=== PATIENT | male | born 1980 | race Caucasian/White ===

== ENCOUNTER → 2019-09-25 | Emergency (ER) | payer MEDICAID ==
--- NOTE | 2019-09-25 22:48 | NUR ---
CALLED FOR TRIAGE, NO RESPONSE
--- NOTE | 2019-09-25 23:09 | NUR ---
CALLED FOR TRIAGE, NO RESPONSE
--- NOTE | 2019-09-25 23:48 | NUR ---
CALLED FOR TRIAGE, NO RESPONSE
--- NOTE | 2019-09-26 00:01 | NUR ---
CALLED FOR TRIAGE, NO RESPONSE
== END | disposition left against medical advice (07) ==
LOC: ER 21:56
DX: Z53.21 Procedure and treatment not carried out due to patient leaving prior to being seen by health care provider (principal)

== ENCOUNTER 2019-09-26 23:57 | Emergency (ER) | payer MEDICAID ==
[~2019-09-26] VITALS: Ht 167.6 cm; Wt 83.9 kg
--- NOTE | 2019-09-27 00:01 | NUR ---
PT AAOX4. AMBULATORY WITH STADY GAIT. C/O SI WITH PLAN TO CUT WRIST. DENIES ETOH OR DRUG USE. DENIES HI. NOTED OLD CUTS ON L WRIST. PLACED IN GOWN, BELONINGS IN LOCKER. SITTER AT BEDSIDE. PALCED ON MONITOR AND PULSE OX. NO ACUTE DISTRESS NTOED.
[2019-09-27] MEDS ORDERED: OLANZAPINE 5 MG TABLET PO ONE (00:30)
[2019-09-27 00:43] LABS: BASOPHILS # (AUTO) 0.1 /CMM (0.0-0.2); BASOPHILS % (AUTO) 1.1 % (0.0-2.0); EOSINOPHILS % (AUTO) 0.1 % (0.0-6.0); HEMATOCRIT 46 % (39-51); HEMOGLOBIN 15.6 g/dL (13.5-17.5); LYMPHOCYTES # (AUTO) 2.1 /CMM (0.8-4.8); LYMPHOCYTES % (AUTO) 24.8 % (20.0-44.0); MEAN CORPUSCULAR HGB CONC 34 g/dl (31.0-36.0); MEAN CORPUSCULAR VOLUME 88 fL (80-96); MONOCYTES # (AUTO) 0.5 /CMM (0.1-1.30); MONOCYTES % (AUTO) 5.9 % (2.0-12.0); NEUTROPHILS # (AUTO) 5.8 /CMM (1.8-8.9); NEUTROPHILS % (AUTO) 68.1 % (43.0-81.0); PLATELET COUNT (AUTO) 287 /CMM (150-450); WHITE BLOOD COUNT (AUTO) 8.5 K/uL (4.3-11.0)
[2019-09-27 00:55] LABS: CALCIUM, SERUM 9.5 mg/dL (8.5-10.1); CARBON DIOXIDE 24 mmol/L (21-32); CHLORIDE 104 mmol/L (98-107); CREATININE 0.9 mg/dL (0.6-1.3); GLUCOSE 114 mg/dL (74-106); POTASSIUM 3.5 mmol/L (3.5-5.1); SODIUM SERUM 139 mmol/L (136-145); UREA NITROGEN, BLOOD 13 mg/dL (7-18)
[2019-09-27 01:01] LABS: BILIRUBIN,DIRECT 0.1 mg/dL (0.0-0.2); BILIRUBIN,TOTAL 0.3 mg/dL (0.2-1.0)
[2019-09-27 01:02] LABS: ACETAMINOPHEN 0 ug/ml (10-30); ALANINE AMINOTRANSFERASE 57 U/L (12-78); ALBUMIN 4.2 g/dL (3.4-5.0); ALCOHOL, BLOOD < 3 mg/dL (0-0); ALKALINE PHOSPHATASE 123 U/L (46-116); ASPARTATE AMINOTRANSFERASE 37 U/L (15-37); SALICYLATE 1.9 mg/dL (2.8-20.0); TOTAL PROTEIN, SERUM 8.6 g/dL (6.4-8.2)
--- NOTE | 2019-09-27 02:09 | NUR ---
URINE COLLECTED AND SENT TO LAB
[2019-09-27 02:42] LABS: APPEARANCE,URINE CLEAR (CLEAR); BILIRUBIN,URINE NEGATIVE (NEGATIVE); BLOOD, URINE NEGATIVE Ery/uL (NEGATIVE); COLOR,URINE YELLOW (YELLOW); KETONES,URINE NEGATIVE (NEGATIVE); LEUKOCYTE ESTERASE ,URINE NEGATIVE (NEGATIVE); NITRITE, URINE NEGATIVE (NEGATIVE); PROTEIN,URINE NEGATIVE (NEGATIVE); UGLUCOSE NEGATIVE (NEGATIVE); UROBILINOGEN,URINE 0.2 EU/dL (0.2)
--- NOTE | 2019-09-27 03:06 | NUR ---
CLINICAL INFORMATION FAXED TO [facility]
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
[2019-09-27] MEDS ORDERED: LIDOCAINE VISCOUS 2% UD 15 ML UDC ONE (03:38)
[2019-09-27] MEDS ORDERED: MAG HYDROX/AL HYDROX/SIMETH 30 ML UDC ONE (03:38)
[2019-09-27] MEDS ORDERED: LIDOCAINE VISCOUS 2% UD 15 ML UDC MM ONE (04:00)
[2019-09-27] MEDS ORDERED: MAG HYDROX/AL HYDROX/SIMETH 30 ML UDC PO ONE (04:30)
--- NOTE | 2019-09-27 05:20 | NUR ---
PER [facility], NO BEDS AVAILABLE AT THIS TIME. ER MD AWARE
--- NOTE | 2019-09-27 08:12 | NUR ---
JOCELYNN contacted Prasanna at [facility] to f/u regarding admittance to [facility]. Per Prasanna, they are awaiting change of shift. Pt. will be accepted at [facility] [place] per Prasanna.
--- NOTE | 2019-09-27 11:07 | NUR ---
FOLLOWED UP WITH AMRITA W[place] AND EVERYTHING WAS FAXED OVER TO [facility]. NO BED ASSIGNMENT BUT WILL CALL BACK AFTER MEETING WITH INFORMATION.
--- NOTE | 2019-09-27 12:06 | NUR ---
JANUARY FROM [facility] CALLED. PT IS ACCEPTED AT [facility]. NUMBER FOR REPORT IS [phone] [address]T [phone] PICKENS IS PSYCH DOCTOR DR. COOPER ACCEPTING.
--- NOTE | 2019-09-27 12:12 | NUR ---
REPORT GIVEN TO CHANTALE KOWALSKI OF [facility] FOR [facility].
--- NOTE | 2019-09-27 12:15 | NUR ---
CALLED [facility] FOR TRANSPORT TO [facility]. ETA 1300.
[2019-09-27 12:17] VITALS: BP 122/73
--- NOTE | 2019-09-27 13:12 | NUR ---
REPORT GIVEN TO EMT FOR PT TRANSFER TO [facility].
== END 2019-09-27 13:13 ==
LOC: ER 09-27
DX: R45.851 Suicidal ideations (principal); R45.1 Restlessness and agitation; F20.9 Schizophrenia, unspecified; F10.10 Alcohol abuse, uncomplicated; F17.200 Nicotine dependence, unspecified, uncomplicated; Y90.0 Blood alcohol level of less than 20 mg/100 ml
CPT/HCPCS: 36415; 80048; 80076; 80305; 80307; 80329; 81001; 85025; 99285; G0480; 81000-TC

== ENCOUNTER 2020-04-29 04:19 | Emergency (ER) | payer MEDICAID ==
[~2020-04-29] VITALS: Ht 165.1 cm; Wt 81.6 kg
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
--- NOTE | 2020-04-29 04:41 | NUR ---
AWAITING FOR PT TO PROVIDE URINE SAMPLE
--- NOTE | 2020-04-29 04:42 | NUR ---
CALLED POISON CONTROL SPOKE TO DIANNE ADVICED TO WATCH PT FOR 4HRS , CHECK RENAL FUNCTION, CK LEVEL, LACTATE, ASPIRIN AND TYLENOL, OBTAIN EKG TO CHECK FOR PROLONGED QT INTERVAL.
--- NOTE | 2020-04-29 04:49 | NUR ---
ASKED PATIENT TO PROVIDE URINE SAMPLE. PT STATED HE WOULD LIKE WARM WATER. PT PROVIDED WITH WATER.
--- NOTE | 2020-04-29 04:55 | NUR ---
NURSE SCHOOL AT BEDSIDE FOR BLOOD DRAW
[2020-04-29 05:04] LABS: BASOPHILS # (AUTO) 0.1 /CMM (0.0-0.2); BASOPHILS % (AUTO) 0.4 % (0.0-2.0); HEMATOCRIT 45 % (39-51); HEMOGLOBIN 14.9 g/dL (13.5-17.5); LYMPHOCYTES % (AUTO) 7.8 % (20.0-44.0); MEAN CORPUSCULAR HGB CONC 33 g/dl (31.0-36.0); MEAN CORPUSCULAR VOLUME 92 fL (80-96); MONOCYTES # (AUTO) 0.7 /CMM (0.1-1.30); MONOCYTES % (AUTO) 5.6 % (2.0-12.0); NEUTROPHILS # (AUTO) 10.6 /CMM (1.8-8.9); NEUTROPHILS % (AUTO) 86.2 % (43.0-81.0); PLATELET COUNT (AUTO) 262 /CMM (150-450); RED BLOOD CELL COUNT(AUTO) 4.94 MIL/uL (4.5-6.0); WHITE BLOOD COUNT (AUTO) 12.3 K/uL (4.3-11.0)
[2020-04-29] MEDS ORDERED: LIDOCAINE 2% JEL UROJET 10 ML MM ONE ×2 (05:13→06:00)
[2020-04-29 05:17] LABS: CALCIUM, SERUM 9.1 mg/dL (8.5-10.1); CARBON DIOXIDE 30 mmol/L (21-32); CHLORIDE 105 mmol/L (98-107); CREATININE 1.3 mg/dL (0.6-1.3); GLUCOSE 79 mg/dL (74-106); POTASSIUM 3.5 mmol/L (3.5-5.1); SODIUM SERUM 143 mmol/L (136-145); UREA NITROGEN, BLOOD 15 mg/dL (7-18)
[2020-04-29 05:23] LABS: ALANINE AMINOTRANSFERASE 27 U/L (12-78); ALKALINE PHOSPHATASE 117 U/L (46-116); ASPARTATE AMINOTRANSFERASE 21 U/L (15-37); BILIRUBIN,DIRECT 0.2 mg/dL (0.0-0.2); BILIRUBIN,TOTAL 0.5 mg/dL (0.2-1.0); TOTAL PROTEIN, SERUM 7.8 g/dL (6.4-8.2)
[2020-04-29 05:25] LABS: SALICYLATE 1.2 mg/dL (2.8-20.0)
[2020-04-29 05:26] LABS: ACETAMINOPHEN < 2 ug/ml (10-30); ALCOHOL, BLOOD < 3 mg/dL (0-0)
--- NOTE | 2020-04-29 05:33 | NUR ---
URINE COLLECTED AND SENT TO LAB
[2020-04-29 05:57] LABS: APPEARANCE,URINE SL CLOUDY (CLEAR); BILIRUBIN,URINE NEGATIVE (NEGATIVE); BLOOD, URINE NEGATIVE Ery/uL (NEGATIVE); COLOR,URINE YELLOW (YELLOW); KETONES,URINE NEGATIVE (NEGATIVE); LEUKOCYTE ESTERASE ,URINE NEGATIVE (NEGATIVE); NITRITE, URINE NEGATIVE (NEGATIVE); PROTEIN,URINE 30 mg/dl (NEGATIVE); UGLUCOSE NEGATIVE (NEGATIVE)
[2020-04-29] MEDS ORDERED: OLANZAPINE 10 MG VIAL IM ONE ×2 (06:00→06:03)
[2020-04-29 06:22] LABS: BACTERIA,URINE None seen /HPF (None Seen); SQUAMOUS EPITHELIAL CELL,UR Few /HPF (None Seen); URINE AMORPHOUS URATE Moderate /HPF (None Seen); WBC,URINE 0-2 /HPF (0-3)
--- NOTE | 2020-04-29 07:13 | NUR ---
ASSESSED PT ON BED ASLEEP EASILY AROUSABLE, NOT IN RESPIRATORY DISTRESS, V/S STABLE, KEPT RESTED AND COMFORTABLE. WILL CONTINUE TO MONITOR.
--- NOTE | 2020-04-29 10:56 | NUR ---
This SW faxed over patient information to [facility]
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
--- NOTE | 2020-04-29 14:40 | NUR ---
PT PROVIDED WITH A MEAL
[2020-04-29 15:49] VITALS: BP 137/85
--- NOTE | 2020-04-29 15:59 | NUR ---
PT IS ACCEPTED IN [facility] [phone] PICKENS PLEASE SEND JUST AFTER 7PM
--- NOTE | 2020-04-29 16:08 | NUR ---
This SW attempted to speak with Officer Ankit patient Pile Driver Operator. This SW was unable to speak with him, however, this SW left a voicemail informing Officer Ankit that the patient is leaving [facility] to enter Voluntary Psychiatric Treatment at [facility] in [place].
--- NOTE | 2020-04-29 16:12 | NUR ---
This SW spoke with patients mother Carrie to inform her that the patient has been accepted to [facility].
--- NOTE | 2020-04-29 18:40 | NUR ---
CALLED TRANSPORT ETA 2000
--- NOTE | 2020-04-29 20:17 | NUR ---
REPORT GIVEN TO CHANTALE HADLEY FOR [facility]
--- NOTE | 2020-04-29 20:24 | NUR ---
CALL BACK FROM [facility]. PER LINNETTE LOPEZ TO SEND PATIENT TO [facility].
--- NOTE | 2020-04-29 20:26 | NUR ---
REPORT GIVEN TO CRESENCIO. PT NANCY FOR TRANSFER
--- NOTE | 2020-04-30 11:26 | NUR ---
This SW was contacted by patients mother Carrie . Patient's mother asked this SW to inform [facility] about patient not wanting to enter a drug treatment facility in [place] as patient's son lives in the area. Patient wants to see his son but it would be a parole violation. This SW informed patient's mother Carrie that the patient should provide this information to oil field caser at [facility] before referring patient to a drug treatment facility.
== END 2020-04-29 20:27 ==
LOC: ER 04:21
DX: T14.91XA Suicide attempt, initial encounter (principal); T43.692A Poisoning by other psychostimulants, intentional self-harm, initial encounter; R94.31 Abnormal electrocardiogram [ECG] [EKG]; F20.9 Schizophrenia, unspecified; F31.9 Bipolar disorder, unspecified; F17.200 Nicotine dependence, unspecified, uncomplicated; Z59.0 Homelessness; Y93.89 Activity, other specified; Y92.89 Other specified places as the place of occurrence of the external cause; Y99.8 Other external cause status
CPT/HCPCS: 36415; 80048; 80076; 80305; 80307; 80329; 81001; 82550; 85025; 93005; 96372; 99285; G0480; J3490 ×2; 81000-TC

== ENCOUNTER 2020-08-08 03:16 | Emergency (ER) | payer MEDICAID ==
[~2020-08-08] VITALS: Ht 167.6 cm; Wt 72.6 kg
[2020-08-08 03:30] VITALS: BP 135/56
[2020-08-08] MEDS ORDERED: LORAZEPAM INJ 2 MG/ML VIAL ONE (03:47)
[2020-08-08] MEDS ORDERED: LORAZEPAM INJ 2 MG/ML VIAL IM ONE (04:00)
== END 2020-08-08 04:36 | disposition home or self-care (01) ==
LOC: ER 03:38
DX: F15.10 Other stimulant abuse, uncomplicated (principal); F41.9 Anxiety disorder, unspecified; R00.2 Palpitations; R00.0 Tachycardia, unspecified; Z59.0 Homelessness
CPT/HCPCS: 96372; 99283; J2060

== ENCOUNTER 2020-11-19 02:10 | Emergency (ER) | payer MEDICAID ==
[~2020-11-19] VITALS: Ht 167.6 cm; Wt 80.7 kg
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
[2020-11-19 02:55] LABS: BASOPHILS # (AUTO) 0.1 /CMM (0.0-0.2); BASOPHILS % (AUTO) 0.7 % (0.0-2.0); EOSINOPHILS % (AUTO) 0.1 % (0.0-6.0); HEMATOCRIT 39 % (39-51); HEMOGLOBIN 12.9 g/dL (13.5-17.5); LYMPHOCYTES # (AUTO) 2.3 /CMM (0.8-4.8); LYMPHOCYTES % (AUTO) 16.2 % (20.0-44.0); MEAN CORPUSCULAR HGB CONC 33 g/dl (31.0-36.0); MEAN CORPUSCULAR VOLUME 86 fL (80-96); MONOCYTES # (AUTO) 1.9 /CMM (0.1-1.30); MONOCYTES % (AUTO) 13.3 % (2.0-12.0); NEUTROPHILS % (AUTO) 69.7 % (43.0-81.0); PLATELET COUNT (AUTO) 371 /CMM (150-450); RED BLOOD CELL COUNT(AUTO) 4.53 MIL/uL (4.5-6.0); WHITE BLOOD COUNT (AUTO) 14.3 K/uL (4.3-11.0)
--- NOTE | 2020-11-19 02:55 | NUR ---
BROUGHT BY RADIOLOGY TO CT
[2020-11-19 03:04] LABS: CALCIUM, SERUM 9.3 mg/dL (8.5-10.1); CREATININE 1.1 mg/dL (0.6-1.3); POTASSIUM 3.6 mmol/L (3.5-5.1)
[2020-11-19 03:09] LABS: ALBUMIN 3.8 g/dL (3.4-5.0); BILIRUBIN,DIRECT 0.2 mg/dL (0.0-0.2); BILIRUBIN,TOTAL 0.6 mg/dL (0.2-1.0); TOTAL PROTEIN, SERUM 8.8 g/dL (6.4-8.2)
[2020-11-19 04:06] LABS: BILIRUBIN,URINE SMALL (NEGATIVE); COLOR,URINE YELLOW (YELLOW); LEUKOCYTE ESTERASE ,URINE NEGATIVE (NEGATIVE); NITRITE, URINE NEGATIVE (NEGATIVE); PROTEIN,URINE 30 mg/dl (NEGATIVE); UGLUCOSE NEGATIVE (NEGATIVE); UROBILINOGEN,URINE 0.2 EU/dL (0.2)
--- NOTE | 2020-11-19 04:10 | NUR ---
Patient discharged to home in stable condition. Written and verbal after care instructions given. Patient verbalizes understanding of instruction.
[2020-11-19 04:14] LABS: RBC,URINE 0-2 /HPF (0-2); WBC,URINE 0-2 /HPF (0-3)
[2020-11-19 04:15] VITALS: BP 120/75
[2020-11-19 04:15] LABS: BACTERIA,URINE None seen /HPF (None Seen); MUCUS,URINE Few /LPF (None Seen); SQUAMOUS EPITHELIAL CELL,UR Few /HPF (None Seen)
== END 2020-11-19 04:16 | disposition home or self-care (01) ==
LOC: ER 02:13
DX: R10.31 Right lower quadrant pain (principal); R10.32 Left lower quadrant pain; F20.9 Schizophrenia, unspecified; F31.9 Bipolar disorder, unspecified; F17.200 Nicotine dependence, unspecified, uncomplicated; Z98.890 Other specified postprocedural states; Z59.0 Homelessness
CPT/HCPCS: 36415; 80048-TC; 80076-TC; 81001; 83690-TC; 85025-TC

== ENCOUNTER 2021-02-08 09:48 | Emergency (ER) | payer MEDICAID, OTHER ==
[~2021-02-08] VITALS: Ht 167.6 cm; Wt 77.1 kg
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
--- NOTE | 2021-02-08 10:02 | NUR ---
DR CODY AT BEDSIDE FOR EVAL.
[2021-02-08] MEDS ORDERED: LORAZEPAM INJ 2 MG/ML VIAL ONE (10:12)
--- NOTE | 2021-02-08 10:13 | NUR ---
REHEATER HELPER AT BEDSIDE FOR BLOOD DRAW.
[2021-02-08] MEDS ORDERED: LORAZEPAM INJ 2 MG/ML VIAL IM ONE (10:30)
[2021-02-08 10:34] LABS: BASOPHILS # (AUTO) 0.1 K/uL (0.0-0.2); BASOPHILS % (AUTO) 1.1 % (0.0-2.0); EOSINOPHILS % (AUTO) 0.4 % (0.0-6.0); HEMATOCRIT 38 % (39-51); HEMOGLOBIN 12.9 g/dL (13.5-17.5); LYMPHOCYTES # (AUTO) 1.3 K/uL (0.8-4.8); LYMPHOCYTES % (AUTO) 15.2 % (20.0-44.0); MEAN CORPUSCULAR HGB CONC 34 g/dl (31.0-36.0); MEAN CORPUSCULAR VOLUME 87 fL (80-96); MONOCYTES # (AUTO) 0.7 K/uL (0.1-1.30); MONOCYTES % (AUTO) 7.9 % (2.0-12.0); NEUTROPHILS # (AUTO) 6.5 K/uL (1.8-8.9); NEUTROPHILS % (AUTO) 75.4 % (43.0-81.0); PLATELET COUNT (AUTO) 317 K/uL (150-450); RED BLOOD CELL COUNT(AUTO) 4.41 MIL/uL (4.5-6.0); WHITE BLOOD COUNT (AUTO) 8.6 K/uL (4.3-11.0)
[2021-02-08 10:57] LABS: ALANINE AMINOTRANSFERASE 29 U/L (12-78); ALBUMIN 3.8 g/dL (3.4-5.0); ALKALINE PHOSPHATASE 117 U/L (46-116); ASPARTATE AMINOTRANSFERASE 23 U/L (15-37); BILIRUBIN,DIRECT 0.2 mg/dL (0.0-0.2); BILIRUBIN,TOTAL 0.9 mg/dL (0.2-1.0); CALCIUM, SERUM 8.9 mg/dL (8.5-10.1); CARBON DIOXIDE 23 mmol/L (21-32); CHLORIDE 105 mmol/L (98-107); CREATININE 1.1 mg/dL (0.6-1.3); GLUCOSE 122 mg/dL (74-106); POTASSIUM 3.1 mmol/L (3.5-5.1); SODIUM SERUM 140 mmol/L (136-145); TOTAL PROTEIN, SERUM 7.3 g/dL (6.4-8.2); UREA NITROGEN, BLOOD 16 mg/dL (7-18)
[2021-02-08 11:03] LABS: ACETAMINOPHEN 0 ug/ml (10-30); ALCOHOL, BLOOD < 3 mg/dL (0-0)
--- NOTE | 2021-02-08 15:47 | NUR ---
MEDICALLY CLEARED, DISCHARGE TO [facility] IN STABLE CONDITION.
[2021-02-08 15:50] VITALS: BP 128/84
== END 2021-02-08 15:51 ==
LOC: ER 09:54
DX: F19.10 Other psychoactive substance abuse, uncomplicated (principal); R45.1 Restlessness and agitation; R45.6 Violent behavior; E87.6 Hypokalemia; D64.9 Anemia, unspecified; R00.0 Tachycardia, unspecified; F20.9 Schizophrenia, unspecified; F31.9 Bipolar disorder, unspecified; Z98.890 Other specified postprocedural states; Z59.0 Homelessness
CPT/HCPCS: 80048; 80076; 80143; 80307; 80320; 85025; 96372; 99283; J2060; G0480

== ENCOUNTER 2021-04-23 15:57 | Emergency (ER) | payer OTHER ==
[~2021-04-23] VITALS: Ht 167.6 cm; Wt 83.0 kg
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
[2021-04-23] MEDS ORDERED: TDAP [DIPH/PERTUSSIS/TET] 0.5 ML VIAL IM ONE ×2 (16:30→16:31)
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
[2021-04-23] MEDS ORDERED: LIDOCAINE 1%-EPI 1:100,000 20 ML VIAL ONE (16:59)
[2021-04-23] MEDS ORDERED: LIDOCAINE 1%-EPI 1:100,000 20 ML VIAL TP ONE (17:00)
[2021-04-23 18:14] VITALS: BP 130/80
--- NOTE | 2021-04-23 18:15 | NUR ---
Patient discharged to home in stable condition. Written and verbal after care instructions given. Patient verbalizes understanding of instruction.
== END 2021-04-23 18:15 | disposition home or self-care (01) ==
LOC: ER 15:59
DX: S21.111A Laceration without foreign body of right front wall of thorax without penetration into thoracic cavity, initial encounter (principal); F20.9 Schizophrenia, unspecified; F31.9 Bipolar disorder, unspecified; F17.200 Nicotine dependence, unspecified, uncomplicated; Z98.890 Other specified postprocedural states; Z59.0 Homelessness; W45.8XXA Other foreign body or object entering through skin, initial encounter; Y93.89 Activity, other specified; Y92.89 Other specified places as the place of occurrence of the external cause; Y99.8 Other external cause status
CPT/HCPCS: 12001; 71045; 99283; J3490; 90715

== ENCOUNTER 2021-04-25 02:43 | Emergency (ER) | payer MEDICAID, OTHER ==
[~2021-04-25] VITALS: Ht 167.6 cm; Wt 78.9 kg
--- NOTE | 2021-04-25 03:59 | NUR ---
PT LEFT ER WITHOUT BEING SEEN BY MD.
[2021-04-25 04:00] VITALS: BP 135/70
== END 2021-04-25 04:02 | disposition left against medical advice (07) ==
LOC: ER 02:49
DX: R10.10 Upper abdominal pain, unspecified (principal); Z53.21 Procedure and treatment not carried out due to patient leaving prior to being seen by health care provider

== ENCOUNTER 2021-06-06 04:10 | Emergency (ER) | payer MEDICAID ==
[~2021-06-06] VITALS: Ht 167.6 cm; Wt 74.4 kg
[2021-06-06 04:36] VITALS: BP 158/81
[2021-06-06 04:49] LABS: BASOPHILS # (AUTO) 0.2 K/uL (0.0-0.2); BASOPHILS % (AUTO) 2.8 % (0.0-2.0); EOSINOPHILS % (AUTO) 0.5 % (0.0-6.0); HEMATOCRIT 31 % (39-51); HEMOGLOBIN 9.5 g/dL (13.5-17.5); LYMPHOCYTES # (AUTO) 1.8 K/uL (0.8-4.8); LYMPHOCYTES % (AUTO) 29.4 % (20.0-44.0); MEAN CORPUSCULAR HGB CONC 31 g/dl (31.0-36.0); MEAN CORPUSCULAR VOLUME 73 fL (80-96); MONOCYTES # (AUTO) 0.6 K/uL (0.1-1.30); MONOCYTES % (AUTO) 9.2 % (2.0-12.0); NEUTROPHILS # (AUTO) 3.6 K/uL (1.8-8.9); NEUTROPHILS % (AUTO) 58.1 % (43.0-81.0); PLATELET COUNT (AUTO) 391 K/uL (150-450); RED BLOOD CELL COUNT(AUTO) 4.24 MIL/uL (4.5-6.0); WHITE BLOOD COUNT (AUTO) 6.2 K/uL (4.3-11.0)
--- NOTE | 2021-06-06 04:52 | NUR ---
PATIENT LEFT ER WITHOUT BEING SEEN. MD NOTIFIED.
[2021-06-06 04:58] LABS: CALCIUM, SERUM 8.8 mg/dL (8.5-10.1); CREATININE 0.8 mg/dL (0.6-1.3); POTASSIUM 3.4 mmol/L (3.5-5.1)
[2021-06-06 05:04] LABS: ALBUMIN 3.8 g/dL (3.4-5.0); BILIRUBIN,DIRECT 0.1 mg/dL (0.0-0.2); BILIRUBIN,TOTAL 0.3 mg/dL (0.2-1.0); TOTAL PROTEIN, SERUM 7.8 g/dL (6.4-8.2)
[2021-06-06 13:05] LABS: LYMPHOCYTES % (MANUAL) 32 % (16-48); MONOCYTES % (MANUAL) 10 % (0-11.0); NEUTROPHILS % (MANUAL) 58 (42-76)
== END 2021-06-06 04:54 | disposition left against medical advice (07) ==
LOC: ER 04:14
DX: Z53.21 Procedure and treatment not carried out due to patient leaving prior to being seen by health care provider (principal); R10.9 Unspecified abdominal pain; F20.9 Schizophrenia, unspecified; F31.9 Bipolar disorder, unspecified; F17.200 Nicotine dependence, unspecified, uncomplicated; Z98.890 Other specified postprocedural states; Z59.00 Homelessness unspecified
CPT/HCPCS: 36415; 80048-TC; 80076-TC; 83690-TC; 85025-TC

== ENCOUNTER 2021-06-16 03:20 | Emergency (ER) | payer MEDICAID ==
[~2021-06-16] VITALS: Ht 167.6 cm; Wt 3.2 kg
[2021-06-16 04:26] VITALS: BP 129/73
[2021-06-16] MEDS ORDERED: CLON0.5T PO (04:38)
[2021-06-16] MEDS ORDERED: QUET300T2 PO (04:38)
== END 2021-06-16 04:45 | disposition home or self-care (01) ==
LOC: ER 03:24
DX: Z76.0 Encounter for issue of repeat prescription (principal); F20.9 Schizophrenia, unspecified; F31.9 Bipolar disorder, unspecified; F17.200 Nicotine dependence, unspecified, uncomplicated; Z98.890 Other specified postprocedural states; Z59.00 Homelessness unspecified

== ENCOUNTER 2022-03-12 21:07 | Emergency (ER) | payer MEDICAID, OTHER ==
[~2022-03-12] VITALS: Ht 167.6 cm; Wt 70.3 kg
[~2022-03-12 21:07] MED LIST: CLON0.5T PO; QUET300T2 PO
[2022-03-12 21:39] VITALS: BP 143/70
--- NOTE | 2022-03-12 22:10 | NUR ---
PT IS MEDICALLY CLEARED FOR BOOKING AND RELEASED UNDER THE CARE OF [employer] OFFICER. PT IS IN STABLE CONDITION. PT IS AMBULATORY ON STEADY GAIT AND LEFT ON HAND CUFFS
--- NOTE | 2022-03-12 22:12 | NUR ---
Patient discharged to [employer] custody in stable condition. Written and verbal after care instructions given. Patient verbalizes understanding of instruction. PT ambulatory with a steady gait
== END 2022-03-12 22:13 ==
LOC: ER 21:13
DX: S51.812A Laceration without foreign body of left forearm, initial encounter (principal); F20.9 Schizophrenia, unspecified; F17.200 Nicotine dependence, unspecified, uncomplicated; F31.9 Bipolar disorder, unspecified; Z98.890 Other specified postprocedural states; Z59.00 Homelessness unspecified; Z79.899 Other long term (current) drug therapy; W45.0XXA Nail entering through skin, initial encounter; Y93.89 Activity, other specified; Y92.89 Other specified places as the place of occurrence of the external cause; Y99.8 Other external cause status